=== PATIENT | male | born 1985 | race African-American/Black ===

== ENCOUNTER 2022-04-01 09:19 | Inpatient (IN) | payer OTHER ==
[~2022-04-01] VITALS: Ht 188 cm; Wt 111.0 kg
[2022-04-01] VITALS (16 sets, daily range): BP systolic 118–167; BP diastolic 57–98
[2022-04-01] MEDS ORDERED: ROCKLATAN 0.022.5 ML OP (13:46)
[2022-04-02] VITALS: BP 125/76
[2022-04-02 07:12] LABS: BASO % 0.2 % (0.0-1.0); HEMATOCRIT 43.7 % (42.0-52.0); LYMPH # 1.3 10*3/uL (1.3-4.4); LYMPH % 11.2 % (27.0-41.0); MEAN CELL VOLUME 89.9 fl (80.0-94.0); MEAN CORPUSCULAR HGB 29.2 pg (27.0-31.0); MEAN CORPUSCULAR HGB CONC 32.5 g/dl (33.0-37.0); MEAN PLATELET VOLUME 10.2 fl (9.6-12.3); MONO # 0.9 10*3/uL (0.1-1.0); MONO % 7.5 % (3.0-9.0); NEUT # 9.5 10*3/uL (2.3-7.9); NEUT % 80.5 % (47.0-73.0); PLATELET COUNT AUTOMATED 227 10*3/uL (130-400); RED BLOOD COUNT 4.86 10*6/uL (4.50-5.90); RED CELL DISTRI WIDTH 12.1 % (0-14.5); WHITE BLOOD COUNT 11.8 10*3/uL (4.8-10.8)
[2022-04-02 07:21] LABS: ACT PARTIAL THROMBO TIME 27.6 SECONDS (20.0-32.1)
[2022-04-02 08:20] LABS: ALKALINE PHOSPHATASE 63 U/L (46-116); BUN 9 mg/dl (9-23); CHLORIDE 104 mmol/L (98-107); FREE T4 1.01 ng/dl (0.89-1.76); POTASSIUM 3.7 mmol/L (3.4-5.1); SGPT/ALT 41 U/L (10-49); THYROID STIM HORMONE (HS) 0.794 uIU/ml (0.550-4.780); TOTAL PROTEIN 7.3 gm/dL (6.0-8.0)
[2022-04-02] MEDS ORDERED: HYDROCODONE-AC1 EAC1 PO ×3 (11:16→17:03)
[2022-04-02] MEDS ORDERED: ASPIRIN ADULT L81 M2 PO (11:16)
== END 2022-04-02 13:25 | disposition home or self-care (01) | DRG 494 ==
LOC: ED 09:19 → 4E 13:10 → EDHOLD 13:10 → 4E 14:23
PROVIDERS: Student in an Organized Health Care Education/Training Program; ADMIT Student in an Organized Health Care Education/Training Program; ATTEND Student in an Organized Health Care Education/Training Program
PROC: 3E0T3BZ Introduction of Anesthetic Agent into Peripheral Nerves and Plexi, Percutaneous Approach (ICD-10-PCS; principal; 2022-04-01)
PROC: 0QSH04Z Reposition Left Tibia with Internal Fixation Device, Open Approach (ICD-10-PCS; 2022-04-01)
PROC: 0QSK04Z Reposition Left Fibula with Internal Fixation Device, Open Approach (ICD-10-PCS; 2022-04-01)
PROC: 0QSHXZZ Reposition Left Tibia, External Approach (ICD-10-PCS; 2022-04-01)
DX: S82.852A Displaced trimalleolar fracture of left lower leg, initial encounter for closed fracture (principal); H40.9 Unspecified glaucoma; I10 Essential (primary) hypertension; E55.9 Vitamin D deficiency, unspecified; F12.90 Cannabis use, unspecified, uncomplicated; Z78.9 Other specified health status; Z83.3 Family history of diabetes mellitus; Z98.83 Filtering (vitreous) bleb after glaucoma surgery status; S93.432D Sprain of tibiofibular ligament of left ankle, subsequent encounter; V86.55XA Driver of 3- or 4- wheeled all-terrain vehicle (ATV) injured in nontraffic accident, initial encounter; Y93.89 Activity, other specified; Y92.89 Other specified places as the place of occurrence of the external cause; Y99.8 Other external cause status

== ENCOUNTER → 2022-04-16 | Outpatient (CLI) | payer OTHER ==
[~2022-04-16] MED LIST: ASPIRIN ADULT L81 M2 PO; HYDROCODONE-AC1 EAC1 PO; ROCKLATAN 0.022.5 ML OP
== END | disposition home or self-care (01) ==
LOC: ORTHO 04:33
PROVIDERS: ATTEND Orthopaedic Surgery
DX: S82.852D Displaced trimalleolar fracture of left lower leg, subsequent encounter for closed fracture with routine healing (principal); X58.XXXD Exposure to other specified factors, subsequent encounter

== ENCOUNTER → 2022-05-21 | Outpatient (CLI) | payer OTHER | END | disposition home or self-care (01) | LOC: ORTHO 00:08 | PROVIDERS: ATTEND Orthopaedic Surgery | DX: S82.832D Other fracture of upper and lower end of left fibula, subsequent encounter for closed fracture with routine healing (principal); X58.XXXD Exposure to other specified factors, subsequent encounter ==

== ENCOUNTER → 2022-07-12 | Outpatient (CLI) | payer OTHER | LOC: ORTHO 00:34 | PROVIDERS: ATTEND Orthopaedic Surgery | DX: S82.852D Displaced trimalleolar fracture of left lower leg, subsequent encounter for closed fracture with routine healing (principal); X58.XXXD Exposure to other specified factors, subsequent encounter ==